=== PATIENT | male | born 1985 | race Caucasian/White ===

== ENCOUNTER 2016-04-09 00:19 | Emergency (ER) | payer OTHER ==
[~2016-04-09] VITALS: Ht 188 cm; Wt 86.2 kg
[~2016-04-09 00:19] MED LIST: SUBOXONE 8 MG-21 TAB SL
--- NOTE | 2016-04-09 00:34 | Emergency Room Report ---
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 N Clinical Suspician of Infection? N Mental Status: 1 - Regular (Normal Baseline) Sepsis Risk:Low Sepsis Risk Have you (or family members/close friends) recently traveled outside the [place]? N If Yes, where/when: Have you had exposure to infectious disease within the past month? N TB? Other? Specify: Source patient, RN notes reviewed, old records Exam Limitations no limitations Comment onset of rt abd pain with nausea this pm Cardiac Chest Pain Chest pain indicative of cardiac No Timing/Duration this evening Severity moderate ALLERGIES Coded Allergies: penicillin G (Mild, 04/09/16) Home Medications Reported Medications BUPRENORPHINE HCL/NALOXONE HCL (Suboxone 8 MG-2 MG Tablet Sl) 1 TAB SL BID History Medical History General CAD? No Angina: No MT: No Hypertension? No Hyperlipidemia? No CHF? No DVT? No PE? No COPD? No Asthma? No Anemia? No GERD? No Gastric ulcers? No GI Bleed? No Hernia? No Thyroid Problems? No Hypothyroidism? No CVA? No Seizures? No Diabetes? No Renal Insuffiency? No End Stage Renal Disease? No UTI? No Stones? No BPH? No GB Disease: No Nephritic Syndrome? No Asplenia? No Hepatitis? No Sickle Cell Disease? No Arthritis? No Migraines? No Cataracts? No Glaucoma? No MRSA? No HIV? No TB? No Anxiety? No Depression? No Cancer? No More? Yes Additional hx: FORMER DRUG USER Immunization Hx DT/Tetanus Unknown Surgical Hx Previous Surgery?N Social History Smoking Hx Smoker: Current Every Day Smoker Tobacco: Yes Type Cigarettes Packs/day < 1 Pack Alcohol Alcohol: No Drugs none Additionial History Additional History also has some dermatitis for a few weeks on ext w/o itching Review of Systems All Other Systems Reviewed and Negative Constitutional denies fever Eyes denies drainage ENT denies: ear pain, epistaxis, throat pain. Respiratory denies cough, denies shortness of breath, denies wheezing Cardiovascular denies chest pain, denies palpitations, denies syncope Gastrointestinal see HPI, abdominal pain, nausea, denies vomiting Genitourinary denies: dysuria, frequency, hesitancy, hematuria. Musculoskeletal denies back pain, denies joint pain, denies joint swelling, denies neck pain Skin denies rash Psychiatric/Neurological denies seizure Physical Exam Vital Signs Vital Signs Date Time Temp Pulse Resp B/P Pulse O2 O2 Flow FiO2 Ox Delivery Rate 04/09 0210 98 16 142/84 98 04/09 0023 98.9 102 16 159/97 98 - WBC >12,000 or <4,000 or 10% bands? 2 or more SIRS Criteria Met? B/P:142/84 MAP:117 Creatinine >2.0? UA output<0.5ml/kg/hr for 2 hrs? Platelet count >100,000? Lactate >2.0mmol/1? INR >1.2 or PTT > than 60 sec? Evidence of Organ Dysfunction? Provider documented clinical suspician of infection? N Sepsis Criteria Count: 1 Sepsis Risk: Low Sepsis Risk General Appearance no apparent distress Eye Exam - bilateral eye PERRL, bilateral eye EOMI Ear, Nose, Throat normal ENT inspection Neck supple Respiratory Status No: respiratory distress. Cardiovascular regular rate/rhythm Peripheral Pulses Pulses normal Yes Gastrointestinal soft, no organomegaly, no pulsatile mass, no guarding, no rebound, tenderness Back no CVA tenderness Extremities normal inspection Strength 4 Upper Ext (L), 4 Upper Ext (R), 4 Lower Ext (L), 4 Lower Ext (R) Neurologic alert, motor rebuilder II-XII nml as tested, no motor/sensory deficits Reflexes Reflexes normal Yes Mental status normal mood/affect Skin scattered dermatitis - possible impetigious Medical Decision Making LABS/Meds/Orders Pt receiving controlled substance in ED? No Results/Orders Laboratory Tests 04/09/16 0030: Sodium 138, Potassium 3.5, Chloride 101, Carbon Dioxide 31, BUN 10, Creatinine 0.8, Estimated Creat Clear 166, Estimated GFR (MDRD) 114, Glucose 138 H, Calcium 9.1, Total Bilirubin 0.4, AST 28, ALT 40, Alkaline Phosphatase 89, Total Protein 8.3 H, Albumin 4.2, Globulin 4.1 H, Albumin/Globulin Ratio 1.0 L, Amylase 58, Lipase 125, WBC 8.7, RBC 4.86, Hgb 15.3, Hct 42.9, MCV 88.2, RDW 13.1, Plt Count 250, MPV 6.2 L, Gran % 63.6, Gran # 5.5, Lymphocytes % 29.2, Monocytes % 5.5, Eosinophils % 1.4, Basophils % 0.3, Lymphocytes # 2.5, Monocytes # 0.5, Eosinophils # 0.1, Basophils # 0.0, PUBS MCHC 35.5 H, MCH 31.3 H, Urine Color YELLOW, Urine Appearance CLEAR, Urine pH 7.0, Ur Specific [place] 1.015, Urine Protein NEGATIVE, Urine Ketones NEGATIVE, Urine Blood NEGATIVE, Urine Nitrate NEGATIVE, Urine Bilirubin NEGATIVE, Urine Urobilinogen 1.0, Ur Leukocyte Esterase NEGATIVE, Urine WBC OCC, Urine Bacteria OCC, Urine Glucose NEGATIVE Current Medication Orders Sig/Petron[place] Start time Last Medication Dose Route Stop Time Status Admin Sodium Chloride 1,000 ML .Q1H1M 04/09 199 AC 04/09 IV 04/09 299 0155 Sodium Chloride 10 ML PRN PRN 04/09 020 AC IV 04/10 0151 Sodium Chloride 1,000 ML .STK-MED ONE 04/09 0150 DC IV Sodium Chloride 10 ML PRN PRN 04/09 0045 AC IV 04/10 0034 Orders Procedure Date/time Status DIET-NOTHING BY MOUTH 04/[address] ABD & PELVIS W/O CONTRAST 04/[address] SCAN REQ 04/09 34 Complete IV SALINE LOCK 04/09 34 Active URINALYSIS/COMPLETE 04/09 34 Complete LIPASE 04/09 34 Complete COMPLETE METABOLIC PANEL 04/09 34 Complete CBC WITH AUTO DIFF 04/09 34 Complete AMYLASE 04/09 34 Complete XRAY/CT/US XRAY/CT/US CT abdomen, pelvis CT interpretation by discussed w/radiologist Time results known: 213 CT Results abnormal (poss mesenteric adenitis) Departure Departure Time of Disposition 213 Disposition DC Home or Self Care(routine) Clinical Impression Primary Impression: Abdominal pain Qualifiers: Abdominal location: right lower quadrant Qualified Code: R10.31 - Right lower quadrant pain Secondary Impressions: Dermatitis Condition STABLE Patient Instructions DI for Mesenteric Adenitis-Adult Additional Instructions see pcp for follow up and recheck if needed Discharge Counseling Counseled pt/family regarding diagnosis, test results, medications/RX, follow up needs Prescriptions Current Visit Scripts Minocycline Hcl (Minocycline 100MG. Capsule) 100 MG PO BID #14 CAP ED Critical Care Critical Care No at [id number]
[2016-04-09 00:45] LABS: LYMPH # 2.5 K/mm3 (0.7-4.5); LYMPH % 29.2 % (10-50)
[2016-04-09 00:47] LABS: URINE BILIRUBIN - DIPSTICK NEGATIVE (NEG); URINE BLOOD NEGATIVE (NEG)
[2016-04-09 00:59] LABS: HEMOGLOBIN 15.3 g/dL (14.1-18.0)
[2016-04-09] MEDS ORDERED: MINOCYCLINE 10100 MG PO (02:23)
[2016-04-09 02:27] VITALS: BP 142/84
--- NOTE | 2016-04-09 06:06 | RADIOLOGY REPORT PS360 ---
CT ABD PELVIS W/O CONTRAST CLINICAL INDICATION: RIGHT SIDE ABD PAIN ORDERING PHYSICIAN: Cyndi Apodaca MD PATIENT AGE: 30 years COMPARISON: None TECHNIQUE: Axial images obtained with sagittal and coronal reformats. PROCEDURE: Oral Contrast: None IV Contrast: None . FINDINGS: Lower thorax: No acute finding ABDOMEN: Liver: No masses or biliary dilatation. Gallbladder: Gallbladder wall appears thickened versus contracted with low density changes in the gallbladder consistent with gas within gallstones. Pancreas: No masses or peripancreatic fluid collections. Spleen: Unremarkable. Adrenals: Unremarkable Kidneys/ureters: No masses. No renal calculi. No hydronephrosis. No perinephric fluid collections. No ureteral dilatation or obvious ureteral calculi. Stomach bowel: There is a drain versus nondistention of the descending and sigmoid colon. No evidence of diverticulitis. Appendix: No evidence of appendicitis. Tiny appendicolith versus contrast within the appendix PELVIS: Reproductive: Unremarkable Bladder: Nondistended. No obvious stones or masses. ABDOMEN & PELVIS: Peritoneum: No abnormal fluid collections. No obvious inflammatory changes. No free air. Lymph nodes: No enlarged lymph nodes apparent. Vasculature: No evidence of abdominal aortic aneurysm. No retroperitoneal hemorrhage evident. Bones: No acute fracture IMPRESSION: 1. Contracted gallbladder with possible thickening of the wall with gallstones. 2. Thickening versus nondistention of the descending colon. Colitis cannot be excluded. 3. No evidence of appendicitis or obstructing ureteral calculus
[2016-04-24] MEDS ORDERED: PREDNISONE 20MG20 MG PO (01:47)
[2016-04-24] MEDS ORDERED: ZITHROMAX Z PA250 MG PO (01:47)
== END 2016-04-09 02:27 | disposition home or self-care (01) ==
LOC: ER 00:19
PROVIDERS: Emergency Medicine
DX: R10.31 Right lower quadrant pain (principal); L30.9 Dermatitis, unspecified

== ENCOUNTER → 2016-11-03 | Outpatient (CLI) | payer OTHER ==
[~2016-11-03] MED LIST changes: +CLINDAMYCIN HC300 MG PO; +FLAGYL500 M1 PO; +MINOCYCLINE 10100 MG PO; +MOTRIN 600MG.600 MG PO; +PREDNISONE 20MG20 MG PO; +PROTONIX 40MG T40 MG PO; +TESSALON PERLE100 MG PO; +ZITHROMAX Z PA250 MG PO
--- NOTE | 2016-11-03 11:50 | RADIOLOGY REPORT PS360 ---
EXAM: THORACIC SPINE-3V SWIMMERS HISTORY: Upper back pain PARESTHESIA OF SKIN, CHEST WALL PAIN COMPARISON: None FINDINGS: Normal alignment. No fracture or dislocation. No lytic or blastic change. No significant degenerative change. The disc spaces are preserved. There is minimal dextroscoliosis of the mid aspect of the thoracic spine measuring 8 degrees by the Dockery technique IMPRESSION: Mild dextroscoliosis otherwise negative
== END ==
LOC: RAD 10:04
DX: R07.89 Other chest pain (principal); R20.2 Paresthesia of skin

== ENCOUNTER 2016-11-08 17:28 | Emergency (ER) | payer OTHER ==
[~2016-11-08] VITALS: Ht 188 cm; Wt 90.7 kg
[~2016-11-08 17:28] MED LIST changes: -CLINDAMYCIN HC300 MG PO; -FLAGYL500 M1 PO; -MOTRIN 600MG.600 MG PO
[2016-11-08] MEDS ORDERED: FLAGYL500 M1 PO (17:48)
[2016-11-08] MEDS ORDERED: CLINDAMYCIN HC300 MG PO (17:48)
[2016-11-08] MEDS ORDERED: MOTRIN 600MG.600 MG PO (17:48)
--- NOTE | 2016-11-08 17:49 | Emergency Room Report ---
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 N Clinical Suspician of Infection? N Mental Status: 1 - Regular (Normal Baseline) Sepsis Risk:Low Sepsis Risk Have you (or family members/close friends) recently traveled outside the [place]? N If Yes, where/when: Have you had exposure to infectious disease within the past month? TB? Other? Specify: 30 years old white male with marked dental decay presented with LEFT upper jaw pain and swelling. He denies having headaches cervical pain stiffness or rigidity. He needs antibiotics he is ALLERGIC to penicillin. He has no dentist. He was seen 5 days ago. Her back pain underwent negative x-rays Source patient, RN notes reviewed Exam Limitations no limitations ALLERGIES Coded Allergies: penicillin G (Mild, 11/08/16) Home Medications Active Scripts Pantoprazole Sodium (Protonix 40MG TAB) 40 MG PO DAILY #30 TAB Prov: 07/20/16 BENZONATATE (Benzonatate) 100 MG PO TID #15 CAP Prov: 08/05/16 Prednisone (Prednisone 20MG) 20 MG PO BID #10 TAB Prov: 08/05/16 Azithromycin (Zithromycin (Z-BELKIS) 250MG Tab) 250 MG PO DAILY #6 TAB Prov: 08/05/16 Reported Medications BUPRENORPHINE HCL/NALOXONE HCL (Suboxone 8 MG-2 MG Tablet Sl) 1 TAB SL BID History Medical History General CAD? No Angina: No NM: No Hypertension? No Hyperlipidemia? No CHF? No DVT? No PE? No COPD? No Asthma? No Anemia? No GERD? No Gastric ulcers? No GI Bleed? No Hernia? No Thyroid Problems? No Hypothyroidism? No CVA? No Seizures? No Diabetes? No Renal Insuffiency? No End Stage Renal Disease? No UTI? No Stones? No BPH? No GB Disease: No Nephritic Syndrome? No Asplenia? No Hepatitis? No Sickle Cell Disease? No Arthritis? No Migraines? No Cataracts? No Glaucoma? No MRSA? No HIV? No TB? No Anxiety? No Depression? No Cancer? No More? Yes Additional hx: FORMER DRUG USER Immunization Hx Ped.Immunizations UTD Yes DT/Tetanus Unknown Surgical Hx Previous Surgery?N Social History Smoking Hx Smoker: Current Every Day Smoker Tobacco: No Type Chew Packs/day < 1 Pack Alcohol Alcohol: No Review of Systems All Other Systems Reviewed and Negative Constitutional no symptoms reported Eyes no symptoms reported ENT see HPI, dental caries, missing teeth. Respiratory no symptoms reported Cardiovascular no symptoms reported Gastrointestinal no symptoms reported Genitourinary no symptoms reported. Musculoskeletal no symptoms reported Skin no symptoms reported Psychiatric/Neurological no symptoms reported Physical Exam Vital Signs Vital Signs Date Time Temp Pulse Resp B/P Pulse O2 O2 Flow FiO2 Ox Delivery Rate 11/08 1735 85 18 98 THE PATIETN IS IN NO DISTRESS LEFT UPPER JAW SWELLING. (Artis SMITH,[facility]) - WBC >12,000 or <4,000 or 10% bands? 2 or more SIRS Criteria Met? B/P: MAP: Creatinine >2.0? UA output<0.5ml/kg/hr for 2 hrs? Platelet count >100,000? Lactate >2.0mmol/1? INR >1.2 or PTT > than 60 sec? Evidence of Organ Dysfunction? Provider documented clinical suspician of infection? N Sepsis Criteria Count: 0 Sepsis Risk: Low Sepsis Risk General Appearance normal appearance, WD/WN Eye Exam - bilateral eye normal exam, bilateral eye PERRL, bilateral eye EOMI Ear, Nose, Throat hearing grossly normal, normal ENT inspection, BIMANUAL EXAMINATION REVEALED MINIMAL GUM SWELLING AND TENDERNESS OF THE left UPPER JAW. Neck normal inspection, non-tender, supple, full range of motion Respiratory Status Yes: trachea midline, chest symmetrical, non tender chest. No: respiratory distress. Lung Sounds bilateral: normal breath sounds, lungs clear. Cardiovascular normal exam, regular rate/rhythm, no peripheral edema, no gallop, no JVD, no murmur, no rub, normal peripheral pulses Peripheral Pulses Pulses normal Yes Gastrointestinal normal bowel sounds, normal exam, non tender, soft, no organomegaly Back normal inspection, no CVA tenderness, no vertebral tenderness Neurologic alert, tobacco conditioner II-XII nml as tested, normal exam, oriented x 3 Reflexes Reflexes normal Yes Skin intact, normal color, warm/dry Medical Decision Making LABS/Meds/Orders Pt receiving controlled substance in ED? No Departure Departure Time of Disposition 1745 Disposition DC Home or Self Care(routine) Clinical Impression Primary Impression: Dental abscess Secondary Impressions: Dental caries, Penicillin allergy, Tobacco use Condition STABLE Referrals Constanza SMITH,Rakesh Matias (Family) Additional Instructions THE PATIENT WAS ADVISED TO STRAT ABX IMMEDIATELY. HOB 30 DEGREE WARM COMPRESSES FOLLOW UP [facility] IN AM Discharge Counseling Counseled pt/family regarding diagnosis, medications/RX, home care, follow up needs Prescriptions Current Visit Scripts Clindamycin Hcl (Clindamycin 300MG) 300 MG PO Q8 #21 CAP Ref 1 Metronidazole (Flagyl) 500 MG PO Q8 #30 TAB IBUPROFEN (Motrin 600MG) 600 MG PO Q6HP PRN PAIN #20 TAB ED Critical Care Critical Care No If Critical Care minutes are documented, the time involved in the performance of seperately reportable procedures was not counted toward critical care time documented. I directly delivered medical care to this critically ill and/or injured patient. Timely evaluation and treatment was necessary to address the significant organ system(s) dysfunction present in this patient. at 1741
--- NOTE | 2016-11-08 17:49 | Emergency Room Report ---
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 N Clinical Suspician of Infection? N Mental Status: 1 - Regular (Normal Baseline) Sepsis Risk:Low Sepsis Risk Have you (or family members/close friends) recently traveled outside the [place]? N If Yes, where/when: Have you had exposure to infectious disease within the past month? TB? Other? Specify: 30 years old white male with marked dental decay presented with LEFT upper jaw pain and swelling. He denies having headaches cervical pain stiffness or rigidity. He needs antibiotics he is ALLERGIC to penicillin. He has no dentist. He was seen 5 days ago. Her back pain underwent negative x-rays Source patient, RN notes reviewed Exam Limitations no limitations ALLERGIES Coded Allergies: penicillin G (Mild, 11/08/16) Home Medications Active Scripts Pantoprazole Sodium (Protonix 40MG TAB) 40 MG PO DAILY #30 TAB Prov: 07/20/16 BENZONATATE (Benzonatate) 100 MG PO TID #15 CAP Prov: 08/05/16 Prednisone (Prednisone 20MG) 20 MG PO BID #10 TAB Prov: 08/05/16 Azithromycin (Zithromycin (Z-BELKIS) 250MG Tab) 250 MG PO DAILY #6 TAB Prov: 08/05/16 Reported Medications BUPRENORPHINE HCL/NALOXONE HCL (Suboxone 8 MG-2 MG Tablet Sl) 1 TAB SL BID History Medical History General CAD? No Angina: No AR: No Hypertension? No Hyperlipidemia? No CHF? No DVT? No PE? No COPD? No Asthma? No Anemia? No GERD? No Gastric ulcers? No GI Bleed? No Hernia? No Thyroid Problems? No Hypothyroidism? No CVA? No Seizures? No Diabetes? No Renal Insuffiency? No End Stage Renal Disease? No UTI? No Stones? No BPH? No GB Disease: No Nephritic Syndrome? No Asplenia? No Hepatitis? No Sickle Cell Disease? No Arthritis? No Migraines? No Cataracts? No Glaucoma? No MRSA? No HIV? No TB? No Anxiety? No Depression? No Cancer? No More? Yes Additional hx: FORMER DRUG USER Immunization Hx Ped.Immunizations UTD Yes DT/Tetanus Unknown Surgical Hx Previous Surgery?N Social History Smoking Hx Smoker: Current Every Day Smoker Tobacco: No Type Chew Packs/day < 1 Pack Alcohol Alcohol: No Review of Systems All Other Systems Reviewed and Negative Constitutional no symptoms reported Eyes no symptoms reported ENT see HPI, dental caries, missing teeth. Respiratory no symptoms reported Cardiovascular no symptoms reported Gastrointestinal no symptoms reported Genitourinary no symptoms reported. Musculoskeletal no symptoms reported Skin no symptoms reported Psychiatric/Neurological no symptoms reported Physical Exam Vital Signs Vital Signs Date Time Temp Pulse Resp B/P Pulse O2 O2 Flow FiO2 Ox Delivery Rate 11/08 1735 85 18 98 THE PATIETN IS IN NO DISTRESS LEFT UPPER JAW SWELLING. (Artis SMITH,[facility]) - WBC >12,000 or <4,000 or 10% bands? 2 or more SIRS Criteria Met? B/P: MAP: Creatinine >2.0? UA output<0.5ml/kg/hr for 2 hrs? Platelet count >100,000? Lactate >2.0mmol/1? INR >1.2 or PTT > than 60 sec? Evidence of Organ Dysfunction? Provider documented clinical suspician of infection? N Sepsis Criteria Count: 0 Sepsis Risk: Low Sepsis Risk General Appearance normal appearance, WD/WN Eye Exam - bilateral eye normal exam, bilateral eye PERRL, bilateral eye EOMI Ear, Nose, Throat hearing grossly normal, normal ENT inspection, BIMANUAL EXAMINATION REVEALED MINIMAL GUM SWELLING AND TENDERNESS OF THE left UPPER JAW. Neck normal inspection, non-tender, supple, full range of motion Respiratory Status Yes: trachea midline, chest symmetrical, non tender chest. No: respiratory distress. Lung Sounds bilateral: normal breath sounds, lungs clear. Cardiovascular normal exam, regular rate/rhythm, no peripheral edema, no gallop, no JVD, no murmur, no rub, normal peripheral pulses Peripheral Pulses Pulses normal Yes Gastrointestinal normal bowel sounds, normal exam, non tender, soft, no organomegaly Back normal inspection, no CVA tenderness, no vertebral tenderness Neurologic alert, rn endoscopy II-XII nml as tested, normal exam, oriented x 3 Reflexes Reflexes normal Yes Skin intact, normal color, warm/dry Medical Decision Making LABS/Meds/Orders Pt receiving controlled substance in ED? No Departure Departure Time of Disposition 1745 Disposition DC Home or Self Care(routine) Clinical Impression Primary Impression: Dental abscess Secondary Impressions: Dental caries, Penicillin allergy, Tobacco use Condition STABLE Referrals Constanza SMITH,Rakesh Matias (Family) Additional Instructions THE PATIENT WAS ADVISED TO STRAT ABX IMMEDIATELY. HOB 30 DEGREE WARM COMPRESSES FOLLOW UP [facility] IN AM Discharge Counseling Counseled pt/family regarding diagnosis, medications/RX, home care, follow up needs Prescriptions Current Visit Scripts Clindamycin Hcl (Clindamycin 300MG) 300 MG PO Q8 #21 CAP Ref 1 Metronidazole (Flagyl) 500 MG PO Q8 #30 TAB IBUPROFEN (Motrin 600MG) 600 MG PO Q6HP PRN PAIN #20 TAB ED Critical Care Critical Care No If Critical Care minutes are documented, the time involved in the performance of seperately reportable procedures was not counted toward critical care time documented. I directly delivered medical care to this critically ill and/or injured patient. Timely evaluation and treatment was necessary to address the significant organ system(s) dysfunction present in this patient. at 174
[2016-11-08 18:03] VITALS: BP 108/75
== END 2016-11-08 18:03 | disposition home or self-care (01) ==
LOC: ER 17:28
DX: K04.7 Periapical abscess without sinus (principal); K02.9 Dental caries, unspecified; F17.210 Nicotine dependence, cigarettes, uncomplicated; Z88.0 Allergy status to penicillin

== ENCOUNTER → 2016-11-17 | Outpatient (CLI) | payer OTHER ==
[~2016-11-17] MED LIST changes: +CLINDAMYCIN HC300 MG PO; +FLAGYL500 M1 PO; +MOTRIN 600MG.600 MG PO
--- NOTE | 2016-11-18 06:29 | RADIOLOGY REPORT PS360 ---
PROCEDURE: 2-D M-mode and color Doppler study INDICATIONS FOR THE TEST: Chest pain + COPD Heart Murmur Tobacco Smoking Palpitations Fatigue Syncope Edema Hypertension Diabetes Mellitus Rheumatic Fever SOB+BUTLER Obesity Hyperlipidemia Family History HD Additional History PATIENT INFORMATION HEIGHT: 73 WEIGHT:180 GENDER: Male B/P: 2-D/M-MODE INTERPRETATION: 2-D MEASUREMENTS OBSERVED VALUES IN CMS Right Ventricular Dimension (RVDd) 2.1 Interventricular Septum (Thickness)(IVsd) 1.0 Left Ventricular Internal Dimensions(LVIDd) 4.9 Left Ventricular Posterior Wall (Thickness)(LVPWd) 0.7 Aortic Root 3.8 Aortic Cusp Separation 2.3 Left Atrial Dimensions (LAD) 3.3 2D 1. Left atrium is normal size, left ventricle is normal size, there is no concentric left ventricular hypertrophy, visually estimated ejection fraction 55% with no obvious regional wall motion abnormality. 2. The right atrium and right ventricle are normal size and contractility. 3. The aortic, mitral and tricuspid valve are structurally normal. 4. The pulmonic valve is poorly visualized. 5. No significant pericardial effusion noted. DOPPLER INTERROGATION: Doppler interrogation of the aortic, mitral and tricuspid valve reveals presence of mild mitral and tricuspid regurgitation, tricuspid and enteric velocity insufficient for calculation of the right ventricular systolic pressure, diastolic parameters are within normal range. CONCLUSION: 1. Normal left ventricular size, preserved left ventricular systolic function, visually estimated ejection fraction of 55% with no regional wall motion abnormality, there is no concentric left ventricular hypertrophy present, diastolic parameters are within normal range. 2. Mild mitral and tricuspid regurgitation. 3. No significant pericardial effusion noted.
== END ==
LOC: RT 11-13 14:30
DX: R00.2 Palpitations (principal); R07.89 Other chest pain